=== PATIENT | female | born 1965 | race Two or more races ===

== ENCOUNTER → 2024-10-16 | Outpatient (CLI) | payer OTHER, SELFPAY ==
--- NOTE | 2024-10-16 08:15 | XR_ITS ---
Examination: Screening digital mammography, bilateral Computer aided detection 3-D breast Tomosynthesis, bilateral Date and time of exam: October 16, 2024 0734 hours Compared to mammograms dating to June 18, 2015 Indication: Screening Technique: Nonmagnified MLO, CC views of the breasts to been obtained, reconstructed from 3-D Tomosynthesis images. R2 computer aided detection program utilized for evaluation of suspicious masses and/or abnormal calcifications. 3-D Tomosynthesis images obtained. Findings: The breasts are heterogeneously dense, which may obscure small masses 8 mm focal asymmetry upper outer left breast Stable appearing implants with lobulations in the left implant Benign calcifications Impression: BI-RADS Category 0: Incomplete: Need additional imaging evaluation Recommend follow-up spot tomographic views 8 mm focal asymmetry upper outer left breast as well as left breast sonography to complete workup
== END | disposition home or self-care (01) ==
PROVIDERS: PCP Physician Assistant; Referring Provider Physician Assistant; Visit Provider Physician Assistant
DX: Z12.31 Encounter for screening mammogram for malignant neoplasm of breast (principal); N64.89 Other specified disorders of breast
CPT/HCPCS: 77063; 77067

== ENCOUNTER → 2025-03-27 | Outpatient (CLI) | payer BC, SELFPAY ==
[2025-03-27 09:58] LABS: Collection Type, Urine Clean Catch
[2025-03-27 10:38] LABS: Basophils # (Auto) 0.1 Thou/mm3 (0.0-0.2); Basophils % (Auto) 1 % (0-2.5); Eosinophils # (Auto) 0.3 Thou/mm3 (0.0-0.5); Eosinophils % (Auto) 4 % (0-10); Hematocrit 42.1 % (36.0-46.0); Hemoglobin 13.4 g/dL (12.0-16.0); Immature Granulocytes Auto 0.01 Thou/mm3 (0.00-0.00); Lymphocytes # (Auto) 2.3 Thou/mm3 (1.0-4.8); Lymphocytes % (Auto) 36 % (10-50); Mean Corpuscular HGB Conc 31.8 g/dl (31.0-37.0); Mean Corpuscular Hemoglobin 27.1 pg (25.0-35.0); Mean Corpuscular Volume 85 fL (80-100); Monocytes # (Auto) 0.4 Thou/mm3 (0.0-0.8); Monocytes % (Auto) 7 % (0-12); Neutrophils # (Auto) 3.2 Thou/mm3 (1.8-7.7); Neutrophils % (Auto) 52 % (37-80); Nucleated Red Blood Cell # 0.00 Thou/mm3 (0.00-0.00); Nucleated Red Blood Cell % 0 /100 WBC (0); Platelet Count 397 Thou/mm3 (140-440); RDW Standard Deviation 42.6 fL (36.4-46.3); Red Blood Count 4.94 Miln/mm3 (4.00-5.20); White Blood Count 6.3 Thou/mm3 (3.6-11.0)
[2025-03-27 10:46] LABS: Glucose Estimated Average 120 mg/dL (80-131); Hemoglobin A1C 5.8 % Hgb (4.8-6.0)
[2025-03-27 10:52] LABS: Alanine Aminotransferase 26 U/L (10-49); Albumin, Serum 4.7 gm/dL (3.5-5.0); Albumin/Globulin Ratio 2.0 (1.2-2.2); Alkaline Phosphatase 73 U/L (46-116); Anion Gap 9 (7-16); Aspartate Amino Transferase 25 U/L (0-34); BUN/Creatinine Ratio 11 Ratio (12-20); Bilirubin,Total 0.8 mg/dL (0.3-1.2); Blood Urea Nitrogen 9 mg/dL (9-23); Calcium 9.7 mg/dL (8.3-10.6); Calcium (Corrected) 9.7 mg/dL (8.5-10.1); Carbon Dioxide 27.8 mMol/L (20.0-31.0); Cardiac Risk Estimate 3.7 RATIO (3.7-5.6); Chloride 107 mMol/L (98-107); Cholesterol 196 mg/dL (132-200); Creatinine (Component) 0.8 mg/dL (0.6-1.3); Free T4 (Free Thyroxine) 1.27 ng/dL (0.89-1.76); Globulin 2.3 gm/dL (2.3-3.5); Glucose 97 mg/dL (74-106); HDL Cholesterol 53 mg/dL (40-60); LDL Cholesterol,Calculated 118 mg/dL (0-130); Osmolality,Calculated 285 (275-295); Potassium 4.3 mMol/L (3.4-5.1); Sodium 144 mMol/L (136-145); Thyroid Stimulating Hormone 2.49 uIU/mL (0.55-4.78); Total Protein 7.0 gm/dL (5.7-8.2); Triglycerides 123 mg/dL (30-150); Uric Acid 4.9 mg/dL (3.1-7.8); eGFR > 60 See Note
[2025-03-27 10:53] LABS: Creatinine MALB Rnd Ur 159 mg/dL (30-125); Microalbumin Creat Ratio 4 mg/gCrea (<30); Microalbumin, Random Urine 6 mg/L (0-300)
[2025-03-27 10:54] LABS: Bacteria,Urine Rare; Bilirubin,Urine Negative (Negative); Blood,Urine Trace (Negative); Clarity,Urine Clear (Clear/Hazy); Color,Urine Lt-Yellow (Lt Yel-Yel); Glucose, Urine Negative (Negative); Ketones,Urine Negative (Negative); Leukocyte Esterase,Urine Positive (Negative); Nitrite,Urine Negative (Negative); PH,Urine 5.5 (5.0-7.0); Protein,Urine Negative (Neg - Trace); RBC,Urine 2 /hpf (0-3); Specific Gravity,Urine 1.019 (1.001-1.035); Squamous Epithelial Cell,Urine 2 /hpf (0-5); Urobilinogen,Urine Negative mg/dL (0.0-1.0); WBC,Urine 2 /hpf (0-5)
[2025-03-27 11:57] LABS: Sed Rate (ESR) 17 mm/hr (0-30)
[2025-03-27 16:04] LABS: RA Screen Negative (Negative)
[2025-03-27 16:42] LABS: Chlamydia trachomatis PCR Negative (Not Detect); Neisseria Gonorrhoeae DNA PCR Negative (Not Detect); Trichomonas Negative (Negative)
[2025-04-03 06:41] LABS: ANA Screen, IFA NEGATIVE (NEGATIVE); DHEA Sulfate* 22 mcg/dL (8-188); HIV Ag/Ab, 4th Gen NON-REACTIVE; Luteinizing Hormone* 42.0 mIU/mL; Prolactin* 10.3 ng/mL; Testosterone,Total* 22 ng/dL (2-45)
== END | disposition home or self-care (01) ==
LOC: COPL 08:56
PROVIDERS: PCP Nurse Practitioner Family; Referring Provider Nurse Practitioner Family; Visit Provider Nurse Practitioner Family
DX: Z00.01 Encounter for general adult medical examination with abnormal findings (principal); R10.9 Unspecified abdominal pain; M25.50 Pain in unspecified joint; E55.9 Vitamin D deficiency, unspecified; K59.00 Constipation, unspecified; Z11.3 Encounter for screening for infections with a predominantly sexual mode of transmission; Z83.3 Family history of diabetes mellitus; Z82.49 Family history of ischemic heart disease and other diseases of the circulatory system
CPT/HCPCS: 36415; 80053; 80061; 80074; 81001; 82043; 82306; 82570; 82607; 82627; 82746; 83001; 83002; 83036; 84146; 84403; 84439; 84443; 84550; 85025; 85652; 86038; 86430; 87389; 87491; 87591; 87661

== ENCOUNTER → 2025-04-03 | Outpatient (CLI) | payer BC, SELFPAY ==
[2025-04-09 22:08] LABS: Source STOOL
[2025-04-10 06:39] LABS: Fecal Globin Result NOT DETECTED (NOT DETECTED); Helicobacter pylori Ag, Stool* NOT DETECTED (NOT DETECTED)
== END | disposition home or self-care (01) ==
LOC: SLDO 08:22
PROVIDERS: Referring Provider Nurse Practitioner Family; Visit Provider Nurse Practitioner Family
DX: Z00.01 Encounter for general adult medical examination with abnormal findings (principal); Z11.3 Encounter for screening for infections with a predominantly sexual mode of transmission; Z83.3 Family history of diabetes mellitus; Z82.49 Family history of ischemic heart disease and other diseases of the circulatory system
CPT/HCPCS: 82274; 87177; 87209; 87338; G0328